=== PATIENT | male | born 1995 | race Two or more races ===

== ENCOUNTER → 2017-06-18 | Emergency (ER) | payer OTHER ==
[~2017-06-18] VITALS: Ht 175.3 cm; Wt 98.4 kg
[~2017-06-18] MED LIST: ACETAMINOPHEN 325 MG TABLET PO PRN; ACETAMINOPHEN 650 MG/20.3 ML UDC ONE; ALBUTEROL SULFATE 2.5 MG/3 ML NPPB PRN; ALBUTEROL/IPRATROPIUM 2.5MG/0.5MG, 3 ML NPPB PRN; AMPICILLIN/SULBACTAM 3 GM in SODIUM CHLORIDE 0.9% 100 ML IV ONE; BUPIVACAINE/PF 0.5% ONE; DEXAMETHASONE 4 MG/ML, 1ML ONE; EPINEPHRINE 1 MG/ML, 1ML ONE; FENTANYL PF 100 MCG/2ML IV PRN; FENTANYL PF 100 MCG/2ML ONE; HYDROmorphone 1 MG/ML, 1ML IV PRN; HYDROmorphone 1 MG/ML, 1ML ONE; KETOROLAC 30 MG/1 ML ONE; LIDOCAINE 1%, 20ML INFIL ONE; LIDOCAINE 1%, 20ML ONE; MEPERIDINE/PF 25MG/0.5ML IVPush PRN; MIDAZOLAM 1 MG/ML, 2ML ONE; ONDANSETRON 2MG/ML, 2ML IVPush ONE; ONDANSETRON 2MG/ML, 2ML IVPush PRN; ONDANSETRON 2MG/ML, 2ML ONE; OXYcodone 5 MG/5 ML ORAL.SOL UDC ONE; OXYcodone 5 MG/5 ML ORAL.SOL UDC PO PRN; PROMETHAZINE 25 MG/ML, 1ML IV PRN; PROPOFOL 10 MG/ML, 20ML ONE; ROCURONIUM 10 MG/ML ONE; morphine SULFATE 10 MG/ML, 1ML IVPush ONE; morphine SULFATE 10 MG/ML, 1ML ONE
[2017-06-18 05:19] LABS: HEMOGLOBIN 15.7 g/dL (13.7-18.0); WHITE BLOOD COUNT 12.6 x10^3/uL (3.4-10)
[2017-06-18 05:41] LABS: BLOOD UREA NITROGEN 16 mg/dL (7-18)
[2017-06-18 06:28] VITALS: BP 119/70
== END ==
LOC: ED 04:38
DX: S60.551A Superficial foreign body of right hand, initial encounter (principal); L02.511 Cutaneous abscess of right hand; Z87.891 Personal history of nicotine dependence; W22.8XXA Striking against or struck by other objects, initial encounter; Y93.89 Activity, other specified; Y92.89 Other specified places as the place of occurrence of the external cause; Y99.8 Other external cause status
CPT/HCPCS: 20525; 26075; 36415; 73130; 76001; 80048; 85025; 87070; 87075; 87077; 87186; 87205; 96365; 96367; 96375; 96376; 99285; J0171; J0295; J1100; J1170; J1885; J2250; J2270; J2405; J2704; J3490; J3010

== ENCOUNTER 2019-01-11 02:29 | Emergency (ER) | payer OTHER ==
[~2019-01-11] VITALS: Ht 175.3 cm; Wt 104.5 kg
[2019-01-11] MEDS ORDERED: DEXAMETHASONE 4 MG TABLET ONE (02:57)
[2019-01-11] MEDS ORDERED: ALBUTEROL/IPRATROPIUM 2.5MG/0.5MG, 3 ML NPPB ONE (03:00)
[2019-01-11] MEDS ORDERED: DEXAMETHASONE 4 MG TABLET PO ONE (03:00)
[2019-01-11 03:38] VITALS: BP 119/74
== END 2019-01-11 03:40 | disposition home or self-care (01) ==
LOC: ED 03:20
DX: J20.8 Acute bronchitis due to other specified organisms (principal); B97.89 Other viral agents as the cause of diseases classified elsewhere; J45.909 Unspecified asthma, uncomplicated
CPT/HCPCS: 93005; 94640; 99283; J7620